=== PATIENT | female | born 1995 | race Caucasian/White ===

== ENCOUNTER 2023-03-29 18:50 | Emergency (ER) | payer SELFPAY ==
[~2023-03-29] VITALS: Ht 177.8 cm; Wt 86.0 kg
[2023-03-29 19:07] VITALS: BP 134/85; PULSE 77; RESP 20; TEMP 98.7; O2SAT 100
== END 2023-03-29 20:15 | disposition home or self-care (01) ==
LOC: ER 18:50
DX: H57.13 Ocular pain, bilateral (principal); R06.02 Shortness of breath; R51.9 Headache, unspecified
CPT/HCPCS: 99281; 99282